=== PATIENT | male | born 1960 | race African-American/Black ===

== ENCOUNTER 2016-03-02 15:31 | Emergency (ER) | payer OTHER ==
[~2016-03-02] VITALS: Ht 177.8 cm; Wt 74.8 kg
[~2016-03-02 15:31] MED LIST: DARVOCET-N 1001 EACH PO; FLEXERIL PO; FLOMAX PO; HYDROCHLOROTH12.5 MG PO; INDOMETHACIN 5050 M1; MEDROLDOSEPACK PO; NORCO 5-325 TA1 EACH PO; PERCOCET 5-3251 EACH; PERCOCET 5-3251 EACH PO; PREDNISONE; PREDNISONE 20 M20 M1 PO; VENTOLIN17 GM INH; ZOFRAN ODT4 MG PO
[2016-03-02 15:33] VITALS: BP 155/114
[2016-03-02] MEDS ORDERED: NEXIUM40 MG PO (15:43)
[2016-03-02] MEDS ORDERED: NORFLEX100 MG PO (15:59)
[2016-03-02] MEDS ORDERED: MOBIC7.5 MG PO (15:59)
== END 2016-03-02 16:22 | disposition home or self-care (01) ==
LOC: ER 15:31
DX: S16.1XXA Strain of muscle, fascia and tendon at neck level, initial encounter (principal); S39.012A Strain of muscle, fascia and tendon of lower back, initial encounter; G89.29 Other chronic pain; I10 Essential (primary) hypertension; N40.0 Benign prostatic hyperplasia without lower urinary tract symptoms; Z88.8 Allergy status to other drugs, medicaments and biological substances; F17.210 Nicotine dependence, cigarettes, uncomplicated; F10.99 Alcohol use, unspecified with unspecified alcohol-induced disorder; V43.52XA Car driver injured in collision with other type car in traffic accident, initial encounter; Y93.89 Activity, other specified; Y92.89 Other specified places as the place of occurrence of the external cause; Y99.8 Other external cause status

== ENCOUNTER 2018-07-29 18:49 | Emergency (ER) | payer OTHER ==
[~2018-07-29] VITALS: Ht 180.3 cm; Wt 71.7 kg
[~2018-07-29 18:49] MED LIST changes: +MOBIC7.5 MG PO; +NEXIUM40 MG PO; +NORFLEX100 MG PO
[2018-07-29] MEDS ORDERED: NORFLEX100 MG PO (20:39)
[2018-07-29] MEDS ORDERED: MOBIC15 MG PO (20:39)
[2018-07-29 21:05] VITALS: BP 150/97
== END 2018-07-29 21:06 | disposition home or self-care (01) ==
LOC: ER 18:49
DX: S16.1XXA Strain of muscle, fascia and tendon at neck level, initial encounter (principal); S39.012A Strain of muscle, fascia and tendon of lower back, initial encounter; I10 Essential (primary) hypertension; G89.29 Other chronic pain; N40.0 Benign prostatic hyperplasia without lower urinary tract symptoms; F17.210 Nicotine dependence, cigarettes, uncomplicated; Z88.8 Allergy status to other drugs, medicaments and biological substances; V89.2XXA Person injured in unspecified motor-vehicle accident, traffic, initial encounter; Y93.89 Activity, other specified; Y92.89 Other specified places as the place of occurrence of the external cause; Y99.8 Other external cause status